=== PATIENT | male | born 1945 | race Caucasian/White ===

== ENCOUNTER 2016-03-26 18:35 | Emergency (ER) | payer OTHER ==
[2016-03-26 18:47] LABS: CREATININE 0.7 mg/dL (0.6-1.3); POTASSIUM 2.8 mEq/L (3.7-5.4)
[2016-03-26 19:06] LABS: AMYLASE 58 IU/L (1-118); CHLORIDE 90 mEq/L (99-109); POTASSIUM 2.8 mEq/L (3.7-5.4); SODIUM 126 mEq/L (136-147)
[2016-03-26 19:08] LABS: GLUCOSE 122 mg/dL (70-99)
[2016-03-26 19:10] LABS: ANION GAP 13 MEQ/L (2-14)
[2016-03-26 19:11] LABS: SERUM ETHYL ALCOHOL 45 mg/dL
[2016-03-26 19:12] LABS: GFR ESTIMATE (CALCULATED) > 59 mL/min/
[2016-03-26 19:13] LABS: UREA NITROGEN (BUN) 11 mg/dL (9-23)
[2016-03-26 19:15] LABS: LIPASE 38 U/L (1.0-51.0)
[2016-03-26 20:18] LABS: TROP-I INTERPRETATION NEGATIVE; TROPONIN-I 0.08 ng/mL (0.0-0.30)
[2016-03-26 20:20] LABS: BASOPHIL COUNT 0.1 K/uL (0-0.1); EOSINOPHIL (%) 0.7 % (0-5); EOSINOPHIL COUNT 0.1 K/uL (0-0.3); IMMATURE GRANULOCYTE (%) 0.6 % (0.0-0.7); IMMATURE GRANULOCYTE COUNT 0.1 K/uL; LYMPHOCYTE COUNT 2.6 K/uL (1.0-2.8); MCH 33.1 PG (29.0-34.0); MCHC 35.9 G/DL (30.0-36.0); MCV 92.2 FL (86-99); MEAN PLAT.VOLUME 8.8 uM^3 (9.0-12.4); MONOCYTE (%) 4.5 % (3-12); MONOCYTE COUNT 0.8 K/uL (0-0.8); NEUTROPHIL (%) 79.2 % (45-76); NEUTROPHIL COUNT 13.9 K/uL (1.8-6.4); PLATELET COUNT 306 K/uL (156-360); RBC DIS.WIDTH-CV 12.5 % (11.8-14.6); RBC DIS.WIDTH-SD 42.1 % (39-53); RED BLOOD COUNT 4.23 M/uL (4.00-5.50)
[2016-03-26 20:30] LABS: AMPHETAMINE NEGATIVE (500 ng/mL); BARBITURATES NEGATIVE (200 ng/mL); BENZODIAZEPINES NEGATIVE (150 ng/mL); COCAINE NEGATIVE (150 ng/mL); INTERNAL CONTROLS VALID? YES; METHADONE NEGATIVE (200 ng/mL); METHAMPHETAMINE NEGATIVE (500 ng/mL); OPIATES (MORPHINE) NEGATIVE (100 ng/mL); OXYCODONE NEGATIVE (100 ng/mL); PHENCYCLIDINE NEGATIVE (25 ng/mL); PROPOXYPHENE NEGATIVE (300 ng/mL); THC CANNABINOIDS NEGATIVE (50 ng/mL); TRICYCLIC ANTIDEPRESSANTS NEGATIVE (300 ng/mL)
[2016-03-26 20:33] LABS: WHITE BLOOD COUNT 17.5 K/uL (4.1-10.2)
[2016-03-26 20:46] LABS: ADD MIUA? YES; BILIRUBIN NEGATIVE; BLOOD MODERATE; COLOR YELLOW ((YELLOW)); GLUCOSE (STRIP) NEGATIVE; KETONES NEGATIVE; LEUKOCYTES NEGATIVE; NITRITE NEGATIVE; PH, URINE 6.5 (5-8); PROTEIN (STRIP) 30; SPECIFIC GRAVITY 1.035 (1.000-1.030)
[2016-03-26 20:58] LABS: BACTERIA NONE SEEN; CASTS NONE SEEN /LPF; CRYSTALS NONE SEEN; EPITHELIAL CELLS RARE; MUCUS NONE SEEN; PATHOLOGICAL CAST NONE SEEN; RED BLOOD CELLS 20-30 /HPF (0-5); SMALL ROUND CELL NONE SEEN; UCUL ADDED? NO; WHITE BLOOD CELLS 0-5 /HPF (0-5); YEAST-LIKE CELL NONE SEEN
[2016-03-26 20:58] LABS: PROTHROMBIN TIME 10.6 (9.2-11.2); PTT 25.1 (25-32)
== END 2016-03-26 22:46 | disposition short-term general hospital (02) ==
LOC: TRA 18:35
PROVIDERS: Emergency Medicine
PROC: 3E0234Z Introduction of Serum, Toxoid and Vaccine into Muscle, Percutaneous Approach (ICD-10-PCS; principal; 2016-03-26)
PROC: 2W3MX1Z Immobilization of Left Lower Extremity using Splint (ICD-10-PCS; principal; 2016-03-26)
PROC: 0W9B3ZZ Drainage of Left Pleural Cavity, Percutaneous Approach (ICD-10-PCS; principal; 2016-03-26)
DX: S27.0XXA Traumatic pneumothorax, initial encounter (principal); S82.102B Unspecified fracture of upper end of left tibia, initial encounter for open fracture type I or II; S82.832B Other fracture of upper and lower end of left fibula, initial encounter for open fracture type I or II; S22.42XA Multiple fractures of ribs, left side, initial encounter for closed fracture; S42.032A Displaced fracture of lateral end of left clavicle, initial encounter for closed fracture; V59.49XA Driver of pick-up truck or van injured in collision with other motor vehicles in traffic accident, initial encounter; Y92.410 Unspecified street and highway as the place of occurrence of the external cause; E87.6 Hypokalemia; S02.2XXA Fracture of nasal bones, initial encounter for closed fracture; S62.340A Nondisplaced fracture of base of second metacarpal bone, right hand, initial encounter for closed fracture; S02.31XA Fracture of orbital floor, right side, initial encounter for closed fracture; S09.90XA Unspecified injury of head, initial encounter; T82.856A Stenosis of peripheral vascular stent, initial encounter; I10 Essential (primary) hypertension; F17.200 Nicotine dependence, unspecified, uncomplicated; I73.9 Peripheral vascular disease, unspecified; M85.862 Other specified disorders of bone density and structure, left lower leg; Z88.8 Allergy status to other drugs, medicaments and biological substances; Z85.46 Personal history of malignant neoplasm of prostate; Z90.79 Acquired absence of other genital organ(s); J44.9 Chronic obstructive pulmonary disease, unspecified; Z86.010 Personal history of colon polyps
CPT/HCPCS: 70450; 70486; 71010; 71260; 72125; 72129; 72132; 73030; 73110; 73120; 73130; 73590; 74177; 80047; 80048; 81003; 82150; 83605; 83690; 84484; 85025; 85610; 85730; 86850; 86900; 86901; 93005; 99281; 99285; G0480; J0690; J2270; J2405; J3480; J7030